=== PATIENT | female | born 1970 | race Caucasian/White ===

== ENCOUNTER → 2020-06-19 10:36 | Outpatient (CLI) | payer OTHER, SELFPAY ==
--- NOTE | ~2020-06-19 | MR_ITS ---
EXAMINATION: MR knee RT wo con DATE: 06/19/2020 11:46 INDICATION: Medial right knee pain. Right knee effusion. TECHNIQUE: Magnetic resonance imaging (MRI) of the right knee was performed without intravenous contr ast. Sequences included coronal PD-weighted FSE, coronal PD-weighted FS FSE, sagittal T2-weighted FS E, sagittal PD-weighted FS FSE and axial PD weighted fat saturated FSE. COMPARISON: None. FINDINGS: Medial compartment: Radial tear at the lateral side of the posterior horn of the medial meniscus. There is medial extrusi on of the meniscal body. Partial-thickness cartilage loss in places deep chondral ulceration with und erlying subarticular edema at the anterior weightbearing medial femoral condyle. Partial thickness ca rtilage loss with mild chondral surface regularity along the medial tibial plateau. Small region of d eep chondral fissuring without degenerative subchondral changes at the posterior weightbearing medial femoral condyle. Lateral compartment: Lateral meniscus is normal. Small region of partial-thickness chondral fissuring without degenerative subarticular changes at the posterior margin of the lateral tibial plateau. Patellofemoral compartment: Diffuse partial thickness patellar cartilage loss with scattered chondral surface regularity. There i s deeper chondral ulceration with mild subarticular edema at the superomedial aspect of the lateral f acet near the apical ridge. Ligaments and tendons: Anterior and posterior cruciate ligaments are normal. The medial collateral ligament and fibular fouzia ateral ligament complex are normal. The extensor mechanism is normal. The visualized medial and later al hamstring tendons as well as the iliotibial band are normal. Fluid: Moderate-sized knee joint effusion. Suprapatellar plical band. There is also medial plical band which remains well medial to the rim of the medial trochlea. No loose osteochondral bodies identified. Osseous/other: Normal marrow signal aside from the previous noted small foci of subarticular edema. No fracture or p athologic marrow replacing process. IMPRESSION: 1. Full-thickness radial tear near the root of the posterior horn of the medial meniscus. 2. 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 3. Moderate-sized right knee joint effusion. Reviewed, dictated and finalized at location A. IMPRESSION: 1. Full-thickness radial tear near the root of the posterior horn of the medial meniscus. 2. 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 3. Moderate-sized right knee joint effusion.
== END ==
PROVIDERS: Visit Provider Internal Medicine
DX: M25.561 Pain in right knee (principal); M25.461 Effusion, right knee; S83.241A Other tear of medial meniscus, current injury, right knee, initial encounter; M17.11 Unilateral primary osteoarthritis, right knee; M94.261 Chondromalacia, right knee
CPT/HCPCS: 73721

== ENCOUNTER 2020-08-30 06:54 | Outpatient (NON) | payer OTHER, SELFPAY ==
[2020-08-30 22:31] LABS: SARS-CoV-2 RNA PCR Negative
== END 2020-08-30 06:55 ==
PROVIDERS: PCP Internal Medicine; Visit Provider Internal Medicine
DX: R68.89 Other general symptoms and signs (principal); Z20.828 Contact with and (suspected) exposure to other viral communicable diseases
CPT/HCPCS: 87635; C9803; U0003

== ENCOUNTER → 2023-05-02 14:21 | Outpatient (CLI) | payer OTHER, SELFPAY ==
--- NOTE | ~2023-05-02 | US_ITS ---
EXAMINATION: US venous doppler [facility] DATE: 05/02/2023 14:44 INDICATION: Left lower limb pain. Tenderness in the left popliteal fossa. TECHNIQUE: Grayscale ultrasound images without and with compression and Doppler ultrasound images of the left lower extremity veins were obtained. COMPARISON: None. FINDINGS: The visualized portions of left common femoral vein, profunda (deep) femoral vein, femoral vein, popl iteal vein, peroneal veins, posterior tibial veins, and greater saphenous vein outflow are patent. IMPRESSION: 1. No deep venous thrombosis. Reviewed, dictated and finalized at location A.
== END ==
PROVIDERS: PCP Physician Assistant; Visit Provider Physician Assistant
DX: R29.898 Other symptoms and signs involving the musculoskeletal system (principal); M79.662 Pain in left lower leg
CPT/HCPCS: 93971

== ENCOUNTER 2024-07-17 08:56 | Outpatient (CLI) | payer BC, SELFPAY ==
--- NOTE | ~2024-07-17 | US_ITS ---
EXAMINATION: US retroperitoneal duplex ltd DATE: 07/17/2024 09:28 INDICATION: Hypertension. TECHNIQUE: Multiple grayscale, color Doppler, and pulsed Doppler images of the kidneys and renal eva deepthi were obtained. COMPARISON: None. FINDINGS: The aorta peak systolic velocity is 56 cm/s. The right renal artery peak systolic velocity is 73 cm/s in the proximal segment, 54 cm/s in the mid segment, and 34 cm/s in the distal segment. The left rip al artery peak systolic velocity is 55 cm/s in the proximal segment, 40 cm/s in the mid segment, and 24 cm/s in the distal segment. IMPRESSION: 1. No Doppler evidence of renal artery stenosis. Reviewed, dictated and finalized at location A. 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
== END 2024-07-17 08:57 | disposition home or self-care (01) ==
LOC: MICIMG 08:57
PROVIDERS: PCP Physician Assistant; Visit Provider Physician Assistant
DX: I10 Essential (primary) hypertension (principal)
CPT/HCPCS: 93976

== ENCOUNTER 2024-09-14 11:53 | Emergency (ER) | payer BC, SELFPAY ==
[2024-09-14 12:16] VITALS: BP 120/88; PULSE 62; RESP 16; TEMP 36.9; O2SAT 98
--- NOTE | 2024-09-14 13:03 | ED.URI ---
HPI - URI/Sore Throat General Chief Complaint: Upper Respiratory Infection Stated Complaint: Sore Throat, Dry Cough,Headache Time Seen by Provider: 09/14/24 12:50 Source: patient, RN notes reviewed and old records reviewed Mode of arrival: ambulatory Limitations: no limitations History of Present Illness HPI Narrative: 54 year old female who presents to the [facility] care with complaints of sore throat. dry cough, and headache for the past 6 days. Patient reports that throat is painful and hard to swallow, reports cough is worse when she is supine. Patient reports that she has been taking Mucinex and antihistamine for her symptoms. MD elicited complaint: cough, sore throat and other (headache) Onset (ago): day(s) (6) Able to tolerate fluids by mouth: Yes Treatments prior to arrival: other (Mucinex and antihistamine) Related Data Home Medications ?Medication ?Instructions ?Recorded ?Confirmed ?Last Taken ?Type estradiol 0.1 mg/24 hr semiweekly 09/14/24 Unknown History transdermal patch progesterone micronized 200 mg mg 09/14/24 Unknown History capsule valsartan 320 tablet 09/14/24 Unknown History mg-hydrochlorothiazide 25 mg tablet Allergies Allergy/AdvReac Type Severity Reaction Status Date / Time No Known Allergies Allergy Verified 09/14/24 12:10 Review of Systems Review of Systems: CONSTITUTIONAL: Denies malaise, chills, sweats, or fever. EYES: Denies visual changes, redness, or discharge. ENT: Reports rhinorrhea, congestion, sinus pain headache,no otalgia and positive for sore throat. CARDIOVASCULAR: Denies chest pain, palpitations, or edema. RESPIRATORY: Reports cough.? Denies dyspnea. GASTROINTESTINAL: Denies abdominal pain, nausea, vomiting, diarrhea SKIN: Denies rash or itching. MUSCULOSKELETAL: Denies myalgia. NEUROLOGIC: reports headache. All systems reviewed & are unremarkable except as noted in HPI and below PMFSH Past Medical History Medical History (Updated 09/17/24 @ 13:21 by Rosana Cardoza NP) Mixed hyperlipidemia Hypertension Surgical History Surgical History (Updated 09/17/24 @ 13:18 by Rosana Cardoza NP) Previous section Family History Family History (System 09/29/19 @ 15:52 by Lilli Ramires) Other Cerebrovascular accident Family history of coronary artery disease Hypertension Malignant neoplasm of prostate Social History Social History (System 09/29/19 @ 15:52 by Lilli Ramires) Smoking status: Never smoker Second hand tobacco smoke exposure: No Alcohol intake: current Comments At time of signature, agree with nursing past medical, surgical, social and family history. There is no relevant family history pertinent to the presenting complaint Exam Narrative: GENERAL: Well-appearing, well-nourished, and in no acute distress. HEAD: Normocephalic EYES: PERRLA, conjunctivae clear ENT: Nares clear, turbinates edematous and erythematous, clear discharge. Mucous membranes moist. TM pearly bustamante with dull light reflex bilaterally; no tragal tenderness. Oropharynx erythematous without lesions. Tonsils not enlarged and without exudate, no drooling, no hoarseness, no trismus, uvula midline. NECK: Supple. No lymphadenopathy CHEST: Clear to auscultation, breath sounds equal. No wheezing, rhonchi, rales, or stridor. No respiratory distress, speaks in full sentences. HEART: Regular rate and rhythm. No murmur heard. SKIN: Warm, dry, no rash. NEURO: Alert and oriented x3. PSYCH: Normal mood and affect Course Course Emergency Course: Patient is aware of diagnosis, understands and agrees to treatment plan.? Anticipatory guidance given.? Patient agrees to follow-up as directed and is aware of reasons to seek care at the emergency department. Portions of this record may have been created with voice recognition software Level of Care: Express Care Visit Vital Signs Vital signs: Vital Signs Temperature 36.9 C 09/14/24 12:16 Pulse Rate 62 09/14/24 12:16 Respiratory Rate 16 09/14/24 12:16 Blood Pressure 120/88 09/14/24 12:16 Pulse Oximetry 98 09/14/24 12:16 Temperature 36.9 C 09/14/24 12:16 Pulse Rate 62 09/14/24 12:16 Respiratory Rate 16 09/14/24 12:16 Blood Pressure 120/88 09/14/24 12:16 Pulse Oximetry 98 09/14/24 12:16 Reviewed MDM - URI/Sore Throat MDM Narrative Medical decision making narrative: Differential diagnosis considered: Cervantes virus, strep pharyngitis, allergic rhinitis, upper respiratory tract infection, sinusitis, rhinosinusitis, nasopharyngitis. viral pharyngitis, otitis media, otitis externa, pneumonia, bronchitis, viral cough syndrome, viral syndrome, and influenza.? Exam findings show no acute concerns or changes; patient is non-toxic appearing and is in no distress.? Patient is appropriate for outpatient treatment and follow-up. Differential Diagnosis Differential diagnosis: Likely upper respiratory infection, sinusitis, viral infection, influenza, pharyngitis and other (COVID) Lab Data Attestation: I reviewed the patient's lab results. Lab results narrative: strep screen negative, culture sent, Influenza A negative, Influenza B negative, COVID antigen negative Labs: Lab Results 09/14/24 Range/Units 13:17 POC Influenza A Ag Negative (Negative) POC Influenza B Ag Negative (Negative) POC SARS CoV-2 Ag Negative (Negative) POC Grp A Strep Screen Negative (Negative) reviewed Critical Care Time Critical Care Time Critical Care Time: No Discharge Plan Discharge Clinical Impression: Upper respiratory infection Qualifiers: URI type: unspecified URI Qualified Code(s): J06.9 - Acute upper respiratory infection, unspecified Patient Disposition: Home, Self-Care Condition: Stable Instructions: Upper Respiratory Infection (ED) Additional Instructions: Increase fluids especially juices and water [id number] cough and cold medicine of your choice for your symptoms Prescription cough medicine as directed--caution drowsiness and no driving or alcohol take only at bedtime Zyrtec Claritin or Tiffany daily include Coricidin brand decongestant Tylenol or ibuprofen for any fever pain heat to the face 20-30 minutes 4-6 times a day for pain Salt water gargles, throat lozenges or throat sprays as desired Your strep test today was negative. A throat culture will be sent to the laboratory for further testing. IF the test is positive, you will receive a phone call within 48 hours and an appropriate antibiotic will be initiated at that time. If your symptoms persist, change or worsen significantly before you can contact your personal physician then please, without delay, go to the emergency department for further evaluation. Follow-up with PCP in 7-10 days or sooner if needed Follow up with PCP soon in regards to your blood pressure which is elevated above threshold for referral. Blood pressure above 120/80 may indicate pre-hypertension. 120/88 Patient Language: Divehi Prescriptions: New codeine-guaifenesin 10-100 mg/5 mL liquid 10 ml PO Q6H PRN (Reason: cough) Qty: 120 0RF No Action estradiol 0.1 mg/24 hr patch semiweekly progesterone micronized 200 mg capsule valsartan-hydrochlorothiazide 320-25 mg tablet fluticasone propionate 50 mcg/actuation spray,suspension 1 spray intranasal BID Qty: 47.4 1RF diclofenac-misoprostol 75-200 mg-mcg tablet,IR,delayed rel,biphasic 1 tablet PO BID 30 Days Qty: 60 2RF losartan-hydrochlorothiazide 100-25 mg tablet 1 tablet PO DAILY Qty: 90 1RF rosuvastatin 10 mg tablet 10 mg PO DAILY Qty: 90 1RF nebivolol 2.5 mg tablet 2.5 mg PO DAILY 90 Days Qty: 90 1RF Follow-up/Referrals: Connie Duarte RN [Primary Care Provider] - Time of Disposition: 13:27 Quality [place] Coma Scale Eyes: Open Verbal: Oriented and Alert Motor: Follows Commands Sebastián Coma Total Score: 15
[2024-09-14 13:18] LABS: EDCOVIDSCREEN Negative (Negative); EDINFLUASCREEN Negative (Negative); EDINFLUBSCREEN Negative (Negative); EDSTREPNEGPOS1 Negative (Negative)
== END 2024-09-14 13:27 | disposition home or self-care (01) ==
PROVIDERS: Emergency Provider Registered Nurse
DX: J02.9 Acute pharyngitis, unspecified (principal); J06.9 Acute upper respiratory infection, unspecified; Z20.822 Contact with and (suspected) exposure to COVID-19; I10 Essential (primary) hypertension; E78.2 Mixed hyperlipidemia
CPT/HCPCS: 87081; 87426; 87804; 87880; 99213; G0463